=== PATIENT | male | born 1965 | race African-American/Black ===

== ENCOUNTER 2019-03-15 16:34 | Emergency (ER) | payer OTHER ==
[~2019-03-15] VITALS: Ht 172.7 cm; Wt 85.0 kg
[2019-03-15] MEDS ORDERED: BACITRACIN ZINC OINT UDPKT TOP ONE (19:00)
[2019-03-15] MEDS ORDERED: IBUPROFEN 600MG TABLET PO ONE (19:00)
[2019-03-15] MEDS ORDERED: LIDOCAINE HCL/PF 1% 10 MG/ML 5ML VIAL IJ ONE (19:00)
[2019-03-15] MEDS ORDERED: TETANUS, DIPHTHERIA, PERTUSSIS VAC/PF 0.5ML (>7YR OLD) IM ONE (19:00)
[2019-03-15] MEDS ORDERED: BACITRACIN 15GM TUBE TOP SCH (19:45)
[2019-03-15 22:37] VITALS: BP 132/74
== END 2019-03-15 22:41 | disposition home or self-care (01) ==
LOC: ER 16:34
DX: S90.111A Contusion of right great toe without damage to nail, initial encounter (principal); I10 Essential (primary) hypertension; F14.10 Cocaine abuse, uncomplicated; Z88.8 Allergy status to other drugs, medicaments and biological substances; W22.8XXA Striking against or struck by other objects, initial encounter; Y93.89 Activity, other specified; Y92.89 Other specified places as the place of occurrence of the external cause; Y99.8 Other external cause status
CPT/HCPCS: 11760; 73660; 90471; 90715; 99284; J3490